=== PATIENT | male | born 1945 | race Caucasian/White ===

== ENCOUNTER 2022-04-05 13:12 | Outpatient (CLI) | payer OTHER ==
[~2022-04-05] VITALS: Ht 182.9 cm; Wt 120.2 kg
[2022-04-10] MEDS ORDERED: AMLO-250 PO (12:23)
[2022-04-10] MEDS ORDERED: METF-399 PO (12:23)
[2022-04-10] MEDS ORDERED: TERA5CAP10 PO (12:23)
[2022-04-10] MEDS ORDERED: LISI40TA9 PO (12:23)
[2022-04-10] MEDS ORDERED: ATOR20TA66 PO (12:23)
[2022-04-10] MEDS ORDERED: ALLO100T PO (12:23)
[2022-04-10] MEDS ORDERED: OMEG100032 PO (12:23)
[2022-04-10] MEDS ORDERED: FINA5TAB6 PO (12:23)
== END 2022-04-10 15:21 | disposition home or self-care (01) ==
LOC: PREOP 13:12
PROVIDERS: ATTEND Specialist
DX: Z01.818 Encounter for other preprocedural examination (principal); H25.12 Age-related nuclear cataract, left eye

== ENCOUNTER 2022-04-13 06:10 | Day surgery (SDC) | payer OTHER ==
[~2022-04-13] VITALS: Ht 183 cm; Wt 120.2 kg
[~2022-04-13 06:10] MED LIST: ALLO100T PO; AMLO-250 PO; ATOR20TA66 PO; FINA5TAB6 PO; LISI40TA9 PO; METF-399 PO; OMEG100032 PO; TERA5CAP10 PO
[2022-04-13 06:20] VITALS: BP 167/87
[2022-04-13] MEDS ORDERED: MOXIFLOXACIN OPHTH SOLN 5 MG/ML 0.3 ML SYRINGE OP ONE (06:30)
[2022-04-13] MEDS ORDERED: POVIDONE (BETADINE) OPHTH SOLN 5% 30 ML OP ONE (06:30)
[2022-04-13] MEDS ORDERED: TIMOLOL 0.5% (CATARACTS) 0.3 ML BTL OU PRN (06:30)
[2022-04-13] MEDS: TETRACAINE 0.5% OPHTH SOLN 4 ML BTL (SINGLE DOSE ONLY) OU PRN ×4 (06:35→06:46)
[2022-04-13] MEDS: PHENYLEPHRINE 10% OPHTH (NEO-SYN) 5 ML BTL OU SCH ×3 (06:37→06:45)
[2022-04-13] MEDS: TROPICAMIDE 1% OPH SOLN (MYDRIACYL) 15 ML BTL OP SCH ×3 (06:37→06:45)
[2022-04-13] MEDS ORDERED: acetaZOLAMIDE ER 500 MG CAP (DIAMOX SEQUELS) PO ONE (07:00)
[2022-04-13] MEDS ORDERED: MIDAZOLAM 2 MG/2 ML (VERSED) VIAL ONE (07:25)
--- NOTE | 2022-04-13 07:27 | Ophthalmologist Pre-Op Note ---
Pre-Operative Progress Note H&P Reviewed The H&P was reviewed, patient examined and no changes noted. Date H&P Reviewed: Apr 13, 2022 Time H&P Reviewed: 07:27 Pre-Op Dx Cataract, Left Eye NENO MUNOZ MD Apr 13, 2022 07:27
--- NOTE | 2022-04-13 07:53 | Ophthalmology Operative Report ---
Cataract removal/placement IOL PREOPERATIVE DIAGNOSIS: Cataract Left Eye POSTOPERATIVE DIAGNOSIS: Cataract Left Eye PROCEDURE: Cataract removal and placement of posterior chamber implant, left eye SURGEON: Jordan Munoz ANESTHESIA: Topical with sedation COMPLICATIONS: None ESTIMATED BLOOD LOSS: Minimal DESCRIPTION OF PROCEDURE: After proper informed consent was obtained, the patient, a 76 male, was taken to the Operating Room and the left eye was anesthetized with tetracaine. The left eye was then prepped and draped in the usual manner. A wire lid speculum was placed. A paracentesis was made at the left hand position. Preservative free lidocaine was injected into the anterior chamber followed by viscoelastic. A clear corneal incision was made in the temporal position. A capsulorrhexis was preformed and the central nuclear and cortical material were removed. The posterior capsule was polished and an Delfino 21.5 AU00T0 was placed into the capsular bag. The residual viscoelastic was aspirated and balanced saline solution was injected into the anterior chamber. Moxifloxacin was injected into the anterior chamber. The wound was checked and found to be water tight. The patient tolerated the procedure well without complications. JORDAN MUNOZ MD Apr 13, 2022 07:53
--- NOTE | 2022-04-13 13:48 | Anesthesia-General Post-Op ---
MAC Patient Condition Mental Status/LOC: Same as Preop Cardiovascular: Satisfactory Nausea/Vomiting: Absent Respiratory: Satisfactory Pain: Controlled Complications: Absent Post Op Complications Complications None Follow Up Care/Instructions Patient Instructions None needed. Anesthesiology Discharge Order Discharge Order Patient is doing well, no complaints, stable vital signs, no apparent adverse anesthesia problems. No complications reported per nursing. BRISA RATLIFF CRNA Apr 13, 2022 13:48
== END 2022-04-13 08:02 | disposition home or self-care (01) ==
LOC: SDC 06:10
PROVIDERS: ATTEND Specialist
DX: E11.36 Type 2 diabetes mellitus with diabetic cataract (principal); H25.9 Unspecified age-related cataract; Z79.84 Long term (current) use of oral hypoglycemic drugs
CPT/HCPCS: 82947

== ENCOUNTER → 2022-04-26 | Outpatient (CLI) | payer OTHER | END | disposition home or self-care (01) | LOC: PREOP 10:25 | PROVIDERS: ATTEND Specialist | DX: Z01.818 Encounter for other preprocedural examination (principal) ==

== ENCOUNTER 2022-05-04 06:50 | Day surgery (SDC) | payer OTHER ==
[~2022-05-04] VITALS: Ht 183 cm; Wt 120.2 kg
[2022-05-04] MEDS: TETRACAINE 0.5% OPHTH SOLN 4 ML BTL (SINGLE DOSE ONLY) OU PRN ×4 (06:58→07:20)
[2022-05-04] MEDS ORDERED: TIMOLOL 0.5% (CATARACTS) 0.3 ML BTL OU PRN (07:00)
[2022-05-04] MEDS ORDERED: POVIDONE (BETADINE) OPHTH SOLN 5% 30 ML OP ONE (07:00)
[2022-05-04] MEDS ORDERED: MOXIFLOXACIN OPHTH SOLN 5 MG/ML 0.3 ML SYRINGE OP ONE (07:00)
[2022-05-04 07:08] VITALS: BP 157/80
[2022-05-04] MEDS: TROPICAMIDE 1% OPH SOLN (MYDRIACYL) 15 ML BTL OP SCH ×3 (07:10→07:20)
[2022-05-04] MEDS: PHENYLEPHRINE 10% OPHTH (NEO-SYN) 5 ML BTL OU SCH ×3 (07:10→07:20)
[2022-05-04] MEDS ORDERED: MIDAZOLAM 2 MG/2 ML (VERSED) VIAL ONE (07:59)
--- NOTE | 2022-05-04 08:13 | Ophthalmologist Pre-Op Note ---
Pre-Operative Progress Note H&P Reviewed The H&P was reviewed, patient examined and no changes noted. Date H&P Reviewed: May 04, 2022 Time H&P Reviewed: 08:13 Pre-Op Dx Cataract, Right Eye NENO MUNOZ MD May 04, 2022 08:13
--- NOTE | 2022-05-04 08:36 | Ophthalmology Operative Report ---
Cataract removal/placement IOL PREOPERATIVE DIAGNOSIS: Cataract Right Eye POSTOPERATIVE DIAGNOSIS: Cataract Right Eye PROCEDURE: Cataract removal and placement of posterior chamber implant, right eye SURGEON: Jordan Munoz ANESTHESIA: Topical with sedation COMPLICATIONS: None ESTIMATED BLOOD LOSS: Minimal DESCRIPTION OF PROCEDURE: After proper informed consent was obtained, the patient, a 76 male, was taken to the Operating Room and the right eye was anesthetized with tetracaine. The right eye was then prepped and draped in the usual manner. A wire lid speculum was placed. A paracentesis was made at the left hand position. Preservative free lidocaine was injected into the anterior chamber followed by viscoelastic. A clear corneal incision was made in the temporal position. A capsulorrhexis was preformed and the central nuclear and cortical material were removed. The posterior capsule was polished and Delfino 19.5 AU00T0 IOL was placed into the capsular bag. The residual viscoelastic was aspirated and balanced saline solution was injected into the anterior chamber. Moxifloxacin was injected into the anterior chamber. The wound was checked and found to be water tight. The patient tolerated the procedure well without complications. JORDAN MUNOZ MD May 04, 2022 08:36
[2022-05-04 08:41] VITALS: BP 159/80
--- NOTE | 2022-05-04 09:51 | Anesthesia-General Post-Op ---
MAC Patient Condition Mental Status/LOC: Same as Preop Cardiovascular: Satisfactory Nausea/Vomiting: Absent Respiratory: Satisfactory Pain: Controlled Complications: Absent Post Op Complications Complications None Follow Up Care/Instructions Patient Instructions None needed. Anesthesiology Discharge Order Discharge Order Patient was doing well this morning after the procedure with no complaints, stable vital signs, no apparent adverse anesthesia problems. No complications reported per nursing. ELISHA RIOS DO May 04, 2022 09:51
[2022-05-04] MEDS ORDERED: acetaZOLAMIDE ER 500 MG CAP (DIAMOX SEQUELS) PO ONE (12:00)
== END 2022-05-04 08:44 | disposition home or self-care (01) ==
LOC: SDC 06:50
PROVIDERS: ATTEND Specialist
DX: E11.36 Type 2 diabetes mellitus with diabetic cataract (principal); H25.9 Unspecified age-related cataract; Z79.84 Long term (current) use of oral hypoglycemic drugs
CPT/HCPCS: 82947